=== PATIENT | male | born 1945 | race Caucasian/White ===

== ENCOUNTER → 2021-09-14 19:27 | Outpatient (BNVA) | payer MEDICARE, SELFPAY | PROVIDERS: PCP Family Medicine; Visit Provider Emergency Medicine | DX: Z20.822 Contact with and (suspected) exposure to COVID-19 (principal) | CPT/HCPCS: 87635 ==

== ENCOUNTER 2021-09-21 06:54 | Observation (INO) | payer MEDICARE, SELFPAY ==
[2021-09-21] VITALS (13 sets, daily range): BP systolic 115–144; BP diastolic 65–83; PULSE 64–92; RESP 15–21; TEMP 36.8–37.8; O2SAT 94–97; BMI 22.7; BMI 22.0
--- NOTE | 2021-09-21 07:45 | CTR_ITS ---
PROCEDURE INFORMATION: Exam: CT Abdomen And Pelvis With Contrast Exam date and time: 09/21/2021 9:45 AM Age: 76 years old Clinical indication: Abdominal pain; Other: Abd distension, concern for sbo, ileus, or ischemia TECHNIQUE: Imaging protocol: Computed tomography of the abdomen and pelvis with contrast. Radiation optimization: All CT scans at this facility use at least one of these dose optimization techniques: automated exposure control; mA and/or kV adjustment per patient size (includes targeted exams where dose is matched to clinical indication); or iterative reconstruction. Contrast material: OMNI 350; Contrast volume: 95 ml; Contrast route: INTRAVENOUS (IV); COMPARISON: No relevant prior studies available. RADIATION DOSE METRICS: Total DLP (mGy-cm): 972.95 FINDINGS: Lungs: Trace dependent bibasilar atelectasis. Heart: Coronary artery calcifications noted. Liver: The liver is normal in size and contour. Multiple hepatic granulomas noted. Gallbladder and bile ducts: The gallbladder is distended with normal wall thickness and does not demonstrate calcified gallstones. No intra- or extra-hepatic biliary ductal dilatation. Pancreas: Fat stranding surrounding the tail of the pancreas with minimal adjacent retroperitoneal/peritoneal thickening. No pancreatic duct dilatation identified. Spleen: Multiple splenic granulomas noted. Adrenal glands: The adrenals appear normal. Kidneys and ureters: The kidneys enhance symmetrically and empty into non-dilated ureters. 4 mm stone noted in the upper pole the right kidney. Trace fluid along the lateral margin of the left kidney, possibly reactive from adjacent inflammatory changes associated with the tail of the pancreas. No hydronephrosis or hydroureter. Stomach and bowel: The stomach appears unremarkable. The small bowel loops are not abnormally dilated. The large bowel loops are not abnormally dilated. Colonic diverticulosis without signs of acute diverticulitis. Appendix: The appendix is not readily identified and may be surgically absent. Intraperitoneal space: Trace fluid in the dependent portion of the pelvis. Vasculature: The aorta is nonaneurysmal. The IVC appears normal. The splenic vein is patent. Lymph nodes: Well-marginated, ovoid, low density possible cyst versus lymph node measuring 1.7 x 1.5 cm in pelvis along the right anterolateral margin of the IVC (series 3, image 55). Urinary bladder: The bladder is distended and demonstrates no focal contour abnormality. Reproductive: Unremarkable as visualized. Bones/joints: Unremarkable. Soft tissues: Unremarkable. CT/CT abdomen pelvis w con* [id number] IMPRESSION: 1. Fat stranding surrounding the tail of the pancreas concerning for possible pancreatitis. 2. Colonic diverticulosis without signs of acute diverticulitis. 3. Right-sided nephrolithiasis. 4. Well-marginated cyst versus solitary lymph node in the pelvis. No other significant lymphadenopathy identified.
--- NOTE | 2021-09-21 07:50 | ED_ITS ---
HPI - Abdominal Pain General: Chief Complaint: Abdominal Pain Stated Complaint: Possible Covid and stomach aches Time Seen by Provider: 09/21/21 07:36 History of Present Illness: Patient comes in with abdominal pain. States that he was diagnosed with COVID, and came off restrictions last Wednesday. States that for the last 4 days he has had increasing abdominal pain which he describes as sharp, constant, generalized, worsening, worse with movement. States he has been unable to have a bowel movement for the past few days also. Associated Symptoms: Reports nausea; Denies dysuria, fever(s) and vomiting Review of Systems Const: Denies: fever(s) or body aches Eyes: Denies: change in vision or blurry vision ENMT: Denies: throat pain or odynophagia Card: Denies: chest pain or palpitations Resp: Denies: dyspnea or productive cough GI: Reports: abdominal pain and nausea; Denies: vomiting : Denies: flank pain or dysuria Musc: Denies: neck pain or back pain Skin/Breast: Denies: rash or pruritus Neuro: Denies: headache(s) or numbness in extremities Psych: Denies: anxiety or change in appetite Endo: Denies: polyuria or excessive sweating PFSH ED PFSH: Social History Smoking and tobacco status: former smoker Physical Exam Const: COMMON NORMALS: no acute distress, patient oriented x3, healthy appearing and alert HENMT: COMMON NORMALS: normocephalic and atraumatic HEAD & SCALP: normocephalic and atraumatic Eye: COMMON NORMALS: Equal, round and reactive pupils present and EOMs intact bilaterally PUPIL: Yes Equal, round and reactive pupils present Neck/C-Spine: COMMON NORMALS: full ROM and supple Resp: COMMON NORMALS: normal respiratory effort, No retractions and No use of accessory muscles Cardio: COMMON NORMALS: regular rate and regular rhythm RATE: regular rate RHYTHM: regular rhythm GI: OTHER: Abdomen is distended, generalized tenderness to palpation, with rebound, no bowel sounds on auscultation Back/Pelvis: COMMON NORMALS: thoracic and lumbar spine normal to inspection and no thoracic nor lumbar tenderness Extremity: COMMON NORMALS: normal to inspection and full ROM Neuro: COMMON NORMALS: patient oriented x3 SENSORIUM/ORIENTATION: Yes alert Psych: COMMON NORMALS: mental status grossly normal and cooperative Skin: COMMON NORMALS: no rashes or lesions noted and no wounds GENERAL SKIN EXAM: no rashes or lesions noted Course Vital Signs: Vital signs: Vital Signs Temperature 987.3 F H 09/21/21 07:18 Pulse Rate 88 09/21/21 12:00 Respiratory Rate 19 H 09/21/21 12:00 Blood Pressure 121/77 09/21/21 12:00 Pulse Oximetry 97 09/21/21 12:00 MDM - Abdominal Pain Medical Decision Making Patient comes in with abdominal pain. States that he was diagnosed with COVID, and came off restrictions last Wednesday. States that for the last 4 days he has had increasing abdominal pain which he describes as sharp, constant, generali zed, worsening, worse with movement. States he has been unable to have a bowel movement for the past few days also. On physical exam his abdomen is distended, very tender to palpation throughout, with no bowel sounds on auscultation. Will check labs, CT, treat pain with IV morphine, treat nausea with IV Zofran, give IV fluids, and reassess. On reassessment I talked to the patient about the test results. We will continue IV fluid resuscitation for his pancreatitis. I discussed the case with the hospitalist, and we will admit for further work-up and treatment. Lab Data : 09/21/21 07:58 09/21/21 07:58 Labs/Radiology: Radiology Impressions Abdomen/Pelvis CT 09/21/21 07:45 IMPRESSION: 1. Fat stranding surrounding the tail of the pancreas concerning for possible pancreatitis. 2. Colonic diverticulosis without signs of acute diverticulitis. 3. Right-sided nephrolithiasis. 4. Well-marginated cyst versus solitary lymph node in the pelvis. No other significant lymphadenopathy identified. Gallbladder Ultrasound 09/21/21 10:20 IMPRESSION: Partial obscuration of the pancreas by bowel gas, in the setting of CT detected pancreatitis, with mild pancreatic ductal dilatation. Laboratory Results WBC 23.3 10^3/uL (4.0-10.0) H 09/21/21 07:58 RBC 5.01 10^6/uL (4.1-5.3) 09/21/21 07:58 Hgb 15.7 g/dL (11.7-16.6) 09/21/21 07:58 Hct 46.3 % (42.0-52.0) 09/21/21 07:58 MCV 92.4 fl (80-94) 09/21/21 07:58 MCH 31.3 pg (28.0-34.0) 09/21/21 07:58 MCHC 33.9 g/dL (30.0-36.0) 09/21/21 07:58 RDW 13.1 % (12.1-15.1) 09/21/21 07:58 Plt Count 224 10^3/cmm (130-400) 09/21/21 07:58 MPV 8.9 fL (7.4-10.4) 09/21/21 07:58 Neut % (Auto) 90.8 % 09/21/21 07:58 Lymph % (Auto) 2.6 % 09/21/21 07:58 [place] % (Auto) 5.5 % 09/21/21 07:58 Eos % (Auto) 0.0 % 09/21/21 07:58 Baso % (Auto) 0.1 % 09/21/21 07:58 Neut # (Auto) 21.13 10^3/uL (1.8-7.7) H 09/21/21 07:58 Lymph # (Auto) 0.6 10^3/uL (0.8-4.8) L 09/21/21 07:58 [place] # (Auto) 1.3 10^3/uL (0.2-0.9) H 09/21/21 07:58 Eos # (Auto) 0.0 10^3/uL (0.0-0.8) 09/21/21 07:58 Baso # (Auto) 0.0 10^3/uL (0.0-0.1) 09/21/21 07:58 Nucleated RBC % (auto) 0 % 09/21/21 07:58 Nucleated RBCs # 0.0 /100WBC 09/21/21 07:58 Sodium 130 mmol/L (136-145) L 09/21/21 07:58 Potassium 3.9 mmol/L (3.5-5.1) 09/21/21 07:58 Chloride 95 mmol/L (98-107) L 09/21/21 07:58 Carbon Dioxide 23 mmol/L (22-29) 09/21/21 07:58 Anion Gap 15.9 (5-19) 09/21/21 07:58 BUN 21 mg/dL (8-23) 09/21/21 07:58 Creatinine 0.7 mg/dL (0.7-1.2) 09/21/21 07:58 GFR Calculation Not Reportable 09/21/21 07:58 Glucose 88 mg/dL (65-115) 09/21/21 07:58 Calculated Osmolality 272 mOsm/kg (285-295) L 09/21/21 07:58 Lactate 0.9 mmol/L (0.5-2.2) 09/21/21 08:24 Calcium 8.7 mg/dL (8.5-10.5) 09/21/21 07:58 Magnesium 2.0 mg/dL (1.7-2.3) 09/21/21 07:58 Total Bilirubin 1.3 mg/dL (0.15-1.2) H 09/21/21 07:58 AST 28 U/L (0-40) 09/21/21 07:58 ALT 34 U/L (0-41) 09/21/21 07:58 Alkaline Phosphatase 67 IU/L (40-130) 09/21/21 07:58 Total Protein 6.4 g/dL (6.6-8.7) L 09/21/21 07:58 Albumin 3.2 g/dL (3.5-5.2) L 09/21/21 07:58 Globulin 3.2 g/dL (1.3-4.6) 09/21/21 07:58 Lipase 648 U/L (13-60) H 09/21/21 07:58 Discharge Plan Discharge Patient Disposition: Admitted As Inpatient Clinical Impression: Pancreatitis Condition: Stable Coding Level of Care Code ED Ground Crew Lines Person for Urig Fwd Exam Comprehensive
[2021-09-21 08:11] LABS: Basophils % 0.1 %; Hematocrit 46.3 % (42.0-52.0); Hemoglobin 15.7 g/dL (11.7-16.6); Lymphocytes # 0.6 10^3/uL (0.8-4.8); Lymphocytes % 2.6 %; Mean Corpuscular HGB Conc 33.9 g/dL (30.0-36.0); Mean Corpuscular Hemoglobin 31.3 pg (28.0-34.0); Mean Corpuscular Volume 92.4 fl (80-94); Mean Platelet Volume 8.9 fL (7.4-10.4); Monocytes # 1.3 10^3/uL (0.2-0.9); Monocytes % 5.5 %; Neutrophils # 21.13 10^3/uL (1.8-7.7); Neutrophils % 90.8 %; Nucleated Red Blood Cells % 0 %; Platelet Count 224 10^3/cmm (130-400); Red Blood Count 5.01 10^6/uL (4.1-5.3); Red Cell Distribution Width 13.1 % (12.1-15.1); White Blood Count 23.3 10^3/uL (4.0-10.0)
[2021-09-21] MEDS: ondansetron 2 mg/ML SDV 2 mL 4 MG IVP (08:14)
[2021-09-21] MEDS: morphine 4 mg/mL SDV 1 mL IVP (08:14)
[2021-09-21] MEDS: sodium chloride 0.9% 500 ML IV (08:15)
[2021-09-21 08:33] LABS: Alanine Aminotransferase 34 U/L (0-41); Albumin Level 3.2 g/dL (3.5-5.2); Alkaline Phosphatase 67 IU/L (40-130); Blood Urea Nitrogen 21 mg/dL (8-23); Calcium 8.7 mg/dL (8.5-10.5); Carbon Dioxide 23 mmol/L (22-29); Chloride 95 mmol/L (98-107); Globulin 3.2 g/dL (1.3-4.6); Glucose 88 mg/dL (65-115); Osmolality Calculated 272 mOsm/kg (285-295); Sodium 130 mmol/L (136-145); Total Bilirubin 1.3 mg/dL (0.15-1.2); Total Protein 6.4 g/dL (6.6-8.7)
[2021-09-21 08:36] LABS: Anion Gap 15.9 (5-19); Aspartate Amino Transferase 28 U/L (0-40); Potassium 3.9 mmol/L (3.5-5.1)
[2021-09-21 08:41] LABS: Lipase 648 U/L (13-60)
[2021-09-21 08:42] LABS: Lactate (Lactic Acid level) 0.9 mmol/L (0.5-2.2)
[2021-09-21] MEDS: iohexol 350 mg/mL 100 mL Btl IV (09:51)
--- NOTE | 2021-09-21 10:20 | USR_ITS ---
PROCEDURE INFORMATION: Exam: US Abdomen, Limited; Right Upper Quadrant Exam date and time: 09/21/2021 11:02 AM Age: 76 years old Clinical indication: Abdominal pain; Acute; Additional info: Concern for gallstone pancreatitis TECHNIQUE: Imaging protocol: Real time ultrasound of the abdomen with image documentation. Limited exam focused on the right upper quadrant. COMPARISON: CT abdomen pelvis w con* [id number] 09/21/2021 9:45 AM FINDINGS: Liver: No focal hepatic mass. Gallbladder: No cholelithiasis, gallbladder wall edema, or pericholecystic fluid. Biliary ducts: Normal caliber of the incompletely visualized common bile duct measuring 4 mm in diameter. Pancreas: Partial obscuration of the pancreas by bowel gas, in the setting of CT detected pancreatitis, with mild pancreatic ductal dilatation. Right kidney: Normal morphology of the visualized right kidney, with partial obscuration of the lower pole by bowel gas. No hydronephrosis. US/US gall bladder [id number] IMPRESSION: Partial obscuration of the pancreas by bowel gas, in the setting of CT detected pancreatitis, with mild pancreatic ductal dilatation.
[2021-09-21] MEDS: sodium chloride 0.9% 1,000 ML 75 ML IV (12:37)
[2021-09-21 12:57] LABS: Add Urine Microscopic? YES; Bilirubin Urine Neg (Negative); Blood Urine 2+ (Negative); Glucose Urine UA Norm (Normal); Ketones Urine Negative (Negative); Leukocyte Esterase Urine Trace (Negative); Nitrate Urine Negative (Negative); Protein Urine Trace (Negative); Specific Gravity, Urine 1.005 (1.005-1.030); Sulfosalicylic Acid Urine Negative (Negative); Urine Appearance Cloudy (CLEAR); Urine Color Yellow (Yellow); Urobilinogen Urine Norm (Negative); pH Urine 8 (5-7)
[2021-09-21 12:59] LABS: Add Urine Culture? No; Bacteria Urine TRACE /hpf; Mucus Urine TRACE /hpf; RBC Urine 0-4 /hpf (0-2); WBC Urine 0-4 /hpf (0-5)
--- NOTE | 2021-09-21 14:05 | PM.HP ---
Providers/Chief Complaint Admitting Physician: Estiven Richards MD Primary Care Provider: Varun Marr DO Chief Complaint: Possible Covid and stomach aches History of Present Illness Christiano Richmond is a 76 year old male who does not have significant past medical history presented to the hospital chief complaint of 1 week history of midepigastric pain. Patient is stating that he suffered from COVID-19 pneumonia 2 weeks ago. He is vaccinated with the booster as well. After his COVID-19 pneumonia he was given Levaquin for empirical Bactrim pneumonia coverage. However he was only able to finish 3 doses when he started experiencing midepigastric pain. He has not been able to sleep for last 3 days. In the ER he was diagnosed with acute pancreatitis, no gallstones, pancreatic duct is dilated, no cholelithiasis. He is afebrile, no signs of jaundice Liver enzymes unremarkable I have switched him to D5 LR with potassium supplement IV fluid for now Bilirubin is 1.3. Lipase 648 Patient does not smoke or drink alcohol, consider himself pretty active for his age, he is full code Review of Systems Const: Reports: chills and malaise Eyes: Denies: change in vision ENMT: Denies: throat pain Card: Denies: chest pain Resp: Denies: dyspnea GI: Reports: abdominal pain and nausea : Denies: flank pain Musc: Denies: neck pain Skin/Breast: Denies: rash Neuro: Denies: headache(s) Psych: Denies: anxiety Endo: Denies: polyuria Cole/Lymph: Denies: easy bruising All/Imm: Denies: urticaria Medications/Allergies Home Medications Medication Instructions Recorded Confirmed Last Taken Type albuterol sulfate 90 mcg/actuation 2 puff INHALATION Q6H PRN #8.5 g 09/14/21 09/21/21 Unknown Rx aerosol inhaler levofloxacin 750 mg tablet 750 mg PO DAILY 7 Days #7 tab 09/20/21 09/21/21 09/20/21 Rx promethazine-DM 6.25 mg-15 mg/5 mL 7.5 ml PO Q6H PRN 09/21/21 09/21/21 09/20/21 History oral syrup Allergies Allergy/AdvReac Type Severity Reaction Status Date / Time Penicillins Allergy Intermediate unknown Verified 09/20/21 10:04 Sulfa (Sulfonamide Allergy Intermediate unknown Verified 09/20/21 10:04 Antibiotics) PFSH Acute PFSH: Medical History (Updated 09/21/21 @ 15:02 by Estiven Richards MD) COVID-16 September 2021 No pertinent past medical history Surgical History (Updated 09/21/21 @ 15:02 by Estiven Richards MD) History of surgery on lower extremity Trauma from horse ride Family History (Updated 09/21/21 @ 15:02 by Estiven Richards MD) Denies family history of Cancer Social History (Updated 09/21/21 @ 15:03 by Estiven Richards MD) Smoking and tobacco status: former smoker Alcohol intake: never Substance/Drug Use: never Household members: spouse Vitals/I&O/Wt Last Vital Signs Temp 987.3 F H 09/21/21 07:18 Pulse 74 09/21/21 13:00 Resp 21 H 09/21/21 13:00 BP 121/65 09/21/21 13:00 Pulse Ox 95 09/21/21 13:00 09/20/21 09/21/21 09/21/21 22:59 06:59 14:59 Intake Total 500 / 500 Balance 500 / 500 Weight last 48 hrs Weight 65.771 kg Physical Exam Narrative: healthy looking elderly male Abdomen is soft at the time of evaluation No active rigidity guarding tenderness or peritonitis Awake and alert Sertraline room air Euvolemic Awake and alert Nonfocal neuro exam Very pleasant cooperative to my evaluation No sign of cellulitis No lower extremity edema Data : 09/21/21 07:58 09/21/21 07:58 A&P Assessment and plan (1) Pancreatitis: Status: Acute Plan Acute pancreatitis Post COVID He was given Levaquin 3 days ago No gallstones, pancreatic duct is dilated Bilirubin is high however liver enzymes are normal Does not drink alcohol, non-smoker Etiology of pancreatitis is unclear No previous history of pancreatitis We will keep him n.p.o. D5 LR with 20 mEq of KCl Dilaudid for analgesia I will advance his diet tomorrow morning to clear liquids Full code N.p.o. DVT prophylaxis Heparin Check lipid profile, triglyceride and A1c level Attestations Medical Necessity Statement*: Anticipating discharge within 48 hours Time Spent in Patient Care: 35 Coding Level of Care Code Acute Track Subway Repair Supervisor for Chg Fwd Diagnoses Pancreatitis K85.90
[2021-09-21 15:32] LABS: Chol HDL Ratio 3.59 mg/dL (1.0-5.00); Cholesterol 201 mg/dL (0-200); HDL Cholesterol 56 mg/dL (60-100); LDL Cholesterol Calculated 118 mg/dL (50-129); LDL HDL Ratio 2.11 RATIO (0.00-3.22); Triglycerides 136 mg/dL (0-150)
[2021-09-21 15:42] LABS: Estmated Average Glucose 108; Hemoglobin A1C 5.4 % (4.0-6.0)
[2021-09-21] MEDS: enoxaparin 40 mg/0.4 mL Syringe SUBCUT (16:14)
[2021-09-21] MEDS: HYDROmorphone 1 mg/mL INJ 1 mL 0.2 MG IVP ×2 (19:30→23:47)
[2021-09-22] VITALS (10 sets, daily range): BP systolic 121–142; BP diastolic 54–76; PULSE 61–75; RESP 16–18; TEMP 36.5–36.8; O2SAT 93–96
[2021-09-22] MEDS: HYDROmorphone 1 mg/mL INJ 1 mL 0.2 MG IVP (03:53)
[2021-09-22 05:12] LABS: Basophils % 0.1 %; Eosinophils % 0.1 %; Hematocrit 43.1 % (42.0-52.0); Hemoglobin 14.9 g/dL (11.7-16.6); Lymphocytes # 0.6 10^3/uL (0.8-4.8); Lymphocytes % 3.7 %; Mean Corpuscular HGB Conc 34.6 g/dL (30.0-36.0); Mean Corpuscular Volume 89.8 fl (80-94); Mean Platelet Volume 9.3 fL (7.4-10.4); Monocytes # 0.9 10^3/uL (0.2-0.9); Monocytes % 5.3 %; Neutrophils # 15.45 10^3/uL (1.8-7.7); Neutrophils % 89.2 %; Nucleated Red Blood Cells % 0 %; Platelet Count 210 10^3/cmm (130-400); Red Cell Distribution Width 13.2 % (12.1-15.1); White Blood Count 17.3 10^3/uL (4.0-10.0)
[2021-09-22 05:38] LABS: Alanine Aminotransferase 24 U/L (0-41); Alkaline Phosphatase 67 IU/L (40-130); Anion Gap 13.1 (5-19); Aspartate Amino Transferase 17 U/L (0-40); Blood Urea Nitrogen 18 mg/dL (8-23); C Reactive Protein 256.7 mg/L (0.0-4.9); Calcium 8.5 mg/dL (8.5-10.5); Carbon Dioxide 26 mmol/L (22-29); Chloride 96 mmol/L (98-107); Globulin 3.2 g/dL (1.3-4.6); Glucose 92 mg/dL (65-115); Magnesium 2.1 mg/dL (1.7-2.3); Osmolality Calculated 274 mOsm/kg (285-295); Phosphorus 1.9 mg/dL (2.5-4.5); Potassium 4.1 mmol/L (3.5-5.1); Sodium 131 mmol/L (136-145); Total Bilirubin 1.1 mg/dL (0.15-1.2); Total Protein 6.2 g/dL (6.6-8.7)
--- NOTE | 2021-09-22 06:19 | PC.NURSE ---
SHIFT SUMMARY Has rested some tonight. Says he woke up often. Has received IV Dilaudid X3 tonight for upper abd pain. Says pain is better this morning. Has remained NPO except for ice chips. Has denied any nausea. Will be advanced to clear liquid diet this morning. IV infusing without difficulty at 75ml/hr rate. Is very pleasant gentleman. Voiding per urinal
[2021-09-22] MEDS: phosphorus 250 mg Tablet PO ×2 (09:26→18:00)
--- NOTE | 2021-09-22 09:48 | PC.CHAP ---
Pastoral Care Encounter/Spiritual Assessment Type of Contact [] Declined cd storage and materials make up helper visit [] Patient/Family/Request visit [] Outpatient visit [] Follow-up visit [] Physician referral [] Code/Alert [x] Routine visit [] Staff referral [] Actively dying [] Patient sleeping [] Family support [] [] Out of room [] Palliative care [] [] Receiving care in room [] Pre-surgical visit [] Trauma [] Long length of stay [] ICU visit [] Other: Relational/Emotional Strength [x] Patient feels connected with others/family/visitors/staff [] Distress [] Loneliness/isolation [] Abandonment Spirituality of Patient [x] Person of Stephanie [] Attends Bahai of their Stephanie [x] Believes in Prayer [] Reads Bible or Anglican materials [] There are Spiritual issues to be addressed Franchise Sales Representative Interventions []x Prayer [x] Active listening [] Non-anxious presence [] Spiritual/emotional support [] Crisis/trauma care [] Spiritual counseling [] Bereavement support [] Provided bereavement packet [] Provided Bible/devotional materials [] Provided toy/stuffed animal, coloring book to patient or family member [] Provided Communion [] Anointing/[place] [] Salvation [x] Completed spiritual assessment [] Other: Impact on Illness or Injury [] Angry [] Fearful [] Anxious [] Often cries [] Exhaustion [] Unable to work [] Unable to attend shinto [] Unable to walk/stand [] Unable to read [] Unable to drive [] Unable to eat/drink [] Unable to sleep [] Unable to be with family [] Patient intubated [] Other: Summary Time spent with patient 10 min
--- NOTE | 2021-09-22 10:43 | P.PN_ITS ---
Subjective Subjective: No overnight events Patient is stating that he is happy to try his clear liquids no active vomiting, no active diarrhea, no worsening abdominal pain Hemodynamically stable Vitals/I&O/Wt Last Vital Signs Temp 98.0 F 09/22/21 07:56 Pulse 75 09/22/21 08:00 Resp 17 09/22/21 08:00 BP 133/74 09/22/21 07:56 Pulse Ox 95 09/22/21 08:00 09/21/21 09/22/21 09/22/21 22:59 06:59 14:59 Intake Total 193.75 / 693.75 927.5 / 1621.25 360 / 360 Output Total 300 / 300 400 / 700 Balance -106.25 / 393.75 527.5 / 921.25 360 / 360 Weight last 48 hrs Weight 63.775 kg Weight 65.771 kg Physical Exam Narrative: Patient is laying supine Looks well hydrated with IV fluids Abdomen is soft nontender S1, S2 no murmur Saturating well on room air Nonfocal neuro exam EOMI, PERRLA Data : 09/22/21 04:13 09/22/21 04:13 A&P Assessment and plan (1) Pancreatitis: Status: Acute Plan Acute pancreatitis Etiology is unknown Patient is a non-smoker nonalcoholic No gallstones Patient is clinically improving If he tolerates his diet no more emesis I can discontinue his IV fluids He is afebrile no signs of sepsis or necrosis of pancreas My plan is to discharge him tomorrow if he is able to tolerate his diet DVT prophylaxis Lovenox Diet: We will advance to full liquid as he is tolerating clear liquids this morning no emesis Plan of discharge: Discharge home tomorrow Attestations Medical Necessity Statement*: Discharge tomorrow Time Spent in Patient Care: 30 Coding Level of Care Code Acute Cloth Printing Back Tender for Emilia Pearce Diagnoses Pancreatitis K85.90
--- NOTE | 2021-09-22 14:52 | PC.NURSE ---
This nurse assumed care of this patient. Patient resting in bed, denies pain at this time. AAOx4, room clean and clutter free with call light in reach. No needs at this time and family at bedside.
[2021-09-22] MEDS: enoxaparin 40 mg/0.4 mL Syringe SUBCUT (15:34)
[2021-09-23 02:52] LABS: Basophils % 0.1 %; Eosinophils # 0.1 10^3/uL (0.0-0.8); Eosinophils % 0.7 %; Hematocrit 42.7 % (42.0-52.0); Hemoglobin 14.2 g/dL (11.7-16.6); Lymphocytes # 0.7 10^3/uL (0.8-4.8); Mean Corpuscular HGB Conc 33.3 g/dL (30.0-36.0); Mean Corpuscular Hemoglobin 31.1 pg (28.0-34.0); Mean Corpuscular Volume 93.6 fl (80-94); Mean Platelet Volume 9.3 fL (7.4-10.4); Monocytes % 6.7 %; Neutrophils # 12.34 10^3/uL (1.8-7.7); Neutrophils % 85.9 %; Nucleated Red Blood Cells % 0 %; Platelet Count 204 10^3/cmm (130-400); Red Blood Count 4.56 10^6/uL (4.1-5.3); Red Cell Distribution Width 13.2 % (12.1-15.1); White Blood Count 14.4 10^3/uL (4.0-10.0)
[2021-09-23 03:48] LABS: Blood Urea Nitrogen 12 mg/dL (8-23); Calcium 8.7 mg/dL (8.5-10.5); Carbon Dioxide 21 mmol/L (22-29); Chloride 97 mmol/L (98-107); Glucose 102 mg/dL (65-115); Osmolality Calculated 268 mOsm/kg (285-295); Sodium 129 mmol/L (136-145)
[2021-09-23 03:50] LABS: Anion Gap 15.6 (5-19); Potassium 4.6 mmol/L (3.5-5.1)
[2021-09-23 04:00] VITALS: BP 129/71; PULSE 67; RESP 17; TEMP 36.8; O2SAT 95
[2021-09-23 07:43] VITALS: BP 148/69; PULSE 67; RESP 13; TEMP 36.8; O2SAT 96
[2021-09-23 08:00] VITALS: PULSE 67; RESP 18; O2SAT 96
[2021-09-23] MEDS: phosphorus 250 mg Tablet PO (08:29)
--- NOTE | 2021-09-23 10:57 | P.DS_ITS ---
Discharge Providers Date of Admission: 09/21/21 12:22 Date of Discharge: September 23, 2021 Attending Provider at Admission: Estiven Richards MD Attending Provider at Discharge: Estiven Richards MD Primary Care Provider: Varun Marr DO Diagnoses at Discharge Discharge Diagnosis (1) Pancreatitis: Status: Acute Reason for Visit Reason for Visit: Possible Covid and stomach aches Hospital Course Hospital Course 76-year male who was admitted to the hospital for chief complaint of abdominal discomfort, and recently he was started on Levaquin for possible pneumonia post COVID. He was diagnosed with pancreatitis. He was kept n.p.o. initially, diet was advanced gradually. He was hemodynamically stable, no active emesis or diarrhea during this hospitalization. No gallstones cholelithiasis/choledocholithiasis patient is a non-smoker nonalcoholic. Etiology pancreatitis is not clear at this point. It could be related to use of Levaquin. At the time of discharge I will switch him to Augmentin give him phosphorus supplementation. For signs of dehydration improving. I will give him salt tablets for next 5 days check his BMP after 1 week. Have him follow-up with his PCP within 2 weeks. Gallbladder ultrasound unremarkable. Physical Exam Narrative: Patient is laying supine Looks well hydrated with IV fluids Abdomen is soft nontender S1, S2 no murmur Saturating well on room air Nonfocal neuro exam EOMI, PERRLA Discharge Data Studies Completed and Pending Completed Studies During Hospitalization Category Date Time Status CT abdomen pelvis w con* [id number] Urgent Cat Scan 09/21/21 07:45 Completed US gall bladder [id number] Urgent Ultrasound 09/21/21 10:20 Completed Radiology Impressions Abdomen/Pelvis CT 09/21/21 07:45 IMPRESSION: 1. Fat stranding surrounding the tail of the pancreas concerning for possible pancreatitis. 2. Colonic diverticulosis without signs of acute diverticulitis. 3. Right-sided nephrolithiasis. 4. Well-marginated cyst versus solitary lymph node in the pelvis. No other significant lymphadenopathy identified. Gallbladder Ultrasound 09/21/21 10:20 IMPRESSION: Partial obscuration of the pancreas by bowel gas, in the setting of CT detected pancreatitis, with mild pancreatic ductal dilatation. Laboratory Results WBC 14.4 10^3/uL (4.0-10.0) H 09/23/21 02:19 RBC 4.56 10^6/uL (4.1-5.3) 09/23/21 02:19 Hgb 14.2 g/dL (11.7-16.6) 09/23/21 02:19 Hct 42.7 % (42.0-52.0) 09/23/21 02:19 MCV 93.6 fl (80-94) 09/23/21 02:19 MCH 31.1 pg (28.0-34.0) 09/23/21 02:19 MCHC 33.3 g/dL (30.0-36.0) 09/23/21 02:19 RDW 13.2 % (12.1-15.1) 09/23/21 02:19 Plt Count 204 10^3/cmm (130-400) 09/23/21 02:19 MPV 9.3 fL (7.4-10.4) 09/23/21 02:19 Neut % (Auto) 85.9 % 09/23/21 02:19 Lymph % (Auto) 5.0 % 09/23/21 02:19 Morrison % (Auto) 6.7 % 09/23/21 02:19 Eos % (Auto) 0.7 % 09/23/21 02:19 Baso % (Auto) 0.1 % 09/23/21 02:19 Neut # (Auto) 12.34 10^3/uL (1.8-7.7) H 09/23/21 02:19 Lymph # (Auto) 0.7 10^3/uL (0.8-4.8) L 09/23/21 02:19 Morrison # (Auto) 1.0 10^3/uL (0.2-0.9) H 09/23/21 02:19 Eos # (Auto) 0.1 10^3/uL (0.0-0.8) 09/23/21 02:19 Baso # (Auto) 0.0 10^3/uL (0.0-0.1) 09/23/21 02:19 Nucleated RBC % (auto) 0 % 09/23/21 02:19 Nucleated RBCs # 0.0 /100WBC 09/23/21 02:19 Sodium 129 mmol/L (136-145) L 09/23/21 02:19 Potassium 4.6 mmol/L (3.5-5.1) 09/23/21 02:19 Chloride 97 mmol/L (98-107) L 09/23/21 02:19 Carbon Dioxide 21 mmol/L (22-29) L 09/23/21 02:19 Anion Gap 15.6 (5-19) 09/23/21 02:19 BUN 12 mg/dL (8-23) 09/23/21 02:19 Creatinine 0.7 mg/dL (0.7-1.2) 09/23/21 02:19 GFR Calculation Not Reportable 09/23/21 02:19 Glucose 102 mg/dL (65-115) 09/23/21 02:19 Estimat Average Glucose 108 09/21/21 07:58 Hemoglobin A1c 5.4 % (4.0-6.0) 09/21/21 07:58 Calculated Osmolality 268 mOsm/kg (285-295) L 09/23/21 02:19 Lactate 0.9 mmol/L (0.5-2.2) 09/21/21 08:24 Calcium 8.7 mg/dL (8.5-10.5) 09/23/21 02:19 Phosphorus 1.9 mg/dL (2.5-4.5) L 09/22/21 04:13 Magnesium 2.1 mg/dL (1.7-2.3) 09/22/21 04:13 Total Bilirubin 1.1 mg/dL (0.15-1.2) 09/22/21 04:13 AST 17 U/L (0-40) 09/22/21 04:13 ALT 24 U/L (0-41) 09/22/21 04:13 Alkaline Phosphatase 67 IU/L (40-130) 09/22/21 04:13 C-Reactive Protein 256.7 mg/L (0.0-4.9) H 09/22/21 04:13 Total Protein 6.2 g/dL (6.6-8.7) L 09/22/21 04:13 Albumin 3.0 g/dL (3.5-5.2) L 09/22/21 04:13 Globulin 3.2 g/dL (1.3-4.6) 09/22/21 04:13 Triglycerides 136 mg/dL (0-150) 09/21/21 07:58 Cholesterol 201 mg/dL (0-200) H 09/21/21 07:58 LDL Cholesterol, Calc 118 mg/dL (50-129) 09/21/21 07:58 HDL Cholesterol 56 mg/dL (60-100) L 09/21/21 07:58 LDL/HDL Ratio 2.11 RATIO (0.00-3.22) 09/21/21 07:58 Cholesterol/HDL Ratio 3.59 mg/dL (1.0-5.00) 09/21/21 07:58 Lipase 648 U/L (13-60) H 09/21/21 07:58 Urine Color Yellow (Yellow) 09/21/21 12:43 Urine Appearance Cloudy (CLEAR) 09/21/21 12:43 Urine pH 8 (5-7) H 09/21/21 12:43 Ur Specific [place] 1.005 (1.005-1.030) 09/21/21 12:43 Urine Protein Trace (Negative) 09/21/21 12:43 Urine Glucose (UA) Norm (Normal) 09/21/21 12:43 Urine Ketones Negative (Negative) 09/21/21 12:43 Urine Blood 2+ (Negative) H 09/21/21 12:43 Urine Nitrate Negative (Negative) 09/21/21 12:43 Urine Bilirubin Neg (Negative) 09/21/21 12:43 Prot Sulfosalicylic Acd Negative (Negative) 09/21/21 12:43 Urine Urobilinogen Norm mg/dL (Negative) 09/21/21 12:43 Ur Leukocyte Esterase Trace (Negative) H 09/21/21 12:43 Urine RBC 0-4 /hpf (0-2) H 09/21/21 12:43 Urine WBC 0-4 /hpf (0-5) H 09/21/21 12:43 Ur Squamous Epith Cells None /hpf (0-5) 09/21/21 12:43 Amorphous Sediment Not Reportable 09/21/21 12:43 Urine Bacteria Trace /hpf (NONE) 09/21/21 12:43 Urine Mucus Trace /hpf 09/21/21 12:43 Vitals Last Vital Signs Temp 98.2 F 09/23/21 07:43 Pulse 67 09/23/21 08:00 Resp 18 09/23/21 08:00 BP 148/69 09/23/21 07:43 Pulse Ox 96 09/23/21 08:00 Discharge Plan Discharge Patient Disposition: Home Condition: Stable Prescriptions: New oxycodone-acetaminophen 5-325 mg tablet 1 tab PO Q8H PRN (Reason: pain) Qty: 10 0RF amoxicillin-pot clavulanate [Augmentin] 500-125 mg tablet 1 tab PO BID Qty: 10 0RF O-Faeb-Yscbdvo 250 mg tablet 1 tab PO BID Qty: 6 0RF sodium chloride 1 gram tablet 1,000 mg PO DAILY Qty: 5 0RF Continued albuterol sulfate 90 mcg/actuation HFA aerosol inhaler 2 puff inhalation Q6H PRN (Reason: shortness of breath or wheezing) Qty: 8.5 0RF promethazine-DM 6.25-15 mg/5 mL Syrup 7.5 ml PO Q6H PRN (Reason: Cough) 0RF Discontinued levofloxacin 750 mg tablet 750 mg PO DAILY 7 Days Qty: 7 0RF Discharge Orders: Discharge Order (Routine); Ordered 09/23/21 Ordered By: Estiven Richards Referrals: Varun Marr DO [Primary Care Provider] - 10/01/21 8:10 am Discharge Diet: GI Soft Discharge Activity: Increase activity as tolerated Patient Instructions: Pancreatitis (ED), Opioid Safety Discharge Attestations Time Spent in Discharge Care*: less than 30 min Quality Metrics Clinical Quality Measures [ No reported AMI, CVA or VTE this stay] Coding Level of Care Code Acute [facility] FW DC note Diagnoses Pancreatitis K85.90
[2021-09-23 11:21] VITALS: BP 126/68; PULSE 62; RESP 20; TEMP 36.8; O2SAT 95
[2021-09-23 11:41] VITALS: BP 126/68; PULSE 62; RESP 20; TEMP 36.8; O2SAT 95
== END 2021-09-23 11:42 | disposition home or self-care (01) ==
LOC: ER 12:23 → MEDSURG 12:54
PROVIDERS: Physician Assistant; Admitting Provider Internal Medicine; Emergency Provider Emergency Medicine; PCP Family Medicine; Visit Provider Internal Medicine
DX: K85.90 Acute pancreatitis without necrosis or infection, unspecified (principal); Z87.891 Personal history of nicotine dependence; Z86.16 Personal history of COVID-19
CPT/HCPCS: 36415; 74177; 76705; 80048; 80053; 80061; 81001; 83036; 83605; 83690; 83735; 84100; 85025; 86140; 94760; 96361; 96372; 96374; 96375; 99285; G0378; J1170; J1650; J2270; J2405; J3480; J7030; J7040; Q9967

== ENCOUNTER → 2022-10-24 10:10 | Outpatient (BNVA) | payer MEDICARE, SELFPAY | PROVIDERS: PCP Family Medicine; Visit Provider Emergency Medicine | DX: R05.9 Cough, unspecified (principal); R68.89 Other general symptoms and signs | CPT/HCPCS: 71046; 87400 ==

== ENCOUNTER → 2022-11-04 14:04 | Outpatient (BNVA) | payer MEDICARE, SELFPAY | PROVIDERS: PCP Family Medicine; Visit Provider Emergency Medicine | DX: R93.89 Abnormal findings on diagnostic imaging of other specified body structures (principal); J18.9 Pneumonia, unspecified organism | CPT/HCPCS: 71046 ==